=== PATIENT | male | born 1945 | race African-American/Black ===

== ENCOUNTER → 2016-10-08 | Outpatient (CLI) | payer MEDICARE, MEDICAID ==
[~2016-10-08] MED LIST: DOBUTAMINE 250MG PREMIX 250 ML IV ONE; REGADENOSON 0.4 MG/5 ML IV ONE
== END | disposition home or self-care (01) ==
LOC: NM 07:26
PROVIDERS: ATTEND Specialist
DX: I25.10 Atherosclerotic heart disease of native coronary artery without angina pectoris (principal); I10 Essential (primary) hypertension
CPT/HCPCS: 78452; 93017; A9500; J1250; J2785

== ENCOUNTER → 2019-06-27 | Outpatient (CLI) | payer MEDICARE, MEDICAID | END | disposition home or self-care (01) | LOC: RAD 10:51 | PROVIDERS: ATTEND Internal Medicine Nephrology | DX: M47.812 Spondylosis without myelopathy or radiculopathy, cervical region (principal); M48.02 Spinal stenosis, cervical region; M25.78 Osteophyte, vertebrae; M19.071 Primary osteoarthritis, right ankle and foot; M20.5X1 Other deformities of toe(s) (acquired), right foot | CPT/HCPCS: 72141; 73630 ==

== ENCOUNTER 2019-07-04 20:47 | Inpatient (IN) | payer MEDICARE, MEDICAID ==
[~2019-07-04] VITALS: Ht 180.3 cm; Wt 93.9 kg
[2019-07-04 21:27] LABS: BASOPHILS % 0.8 % (0.0-2.0); EOSINOPHILS % 4.3 % (0.0-5.0); HEMATOCRIT. 36.3 % (42.0-52.0); HEMOGLOBIN. 12.3 g/dL (14.0-18.0); LYMPHOCYTES % 34.7 % (20.0-50.0); MEAN CORPUSCULAR HEMOGLOBIN 30.8 pg (28.0-32.0); MEAN CORPUSCULAR VOLUME 90.8 fL (80.0-94.0); MEAN PLATELET VOLUME 7.8 fl (7.4-10.4); MONOCYTES % 10.4 % (2.0-8.0); NEUTROPHILS % 49.8 % (40.0-76.0); PLATELET 131 x1000/uL (130-400); RED BLOOD CELL COUNT 3.99 mill/uL (4.7-6.1); RED CELL DISTRIBUTION WIDTH 15.4 % (11.6-14.6)
[2019-07-04 21:35] LABS: CHLORIDE 96 mEq/L (98-107)
[2019-07-04 21:40] LABS: PHOSPHORUS 4.9 mg/dL (2.5-4.9)
[2019-07-04] MEDS ORDERED: VANCOMYCIN 1 G PREMIX 200 ML IV ONE (22:15)
[2019-07-04] MEDS ORDERED: PIPERACILLIN/TAZ 3.375G PREMIX 50 ML IV ONE (22:15)
[2019-07-05] VITALS: BP 140/73
[2019-07-05] MEDS ORDERED: ONDANSETRON HCL 4MG/2ML INJ IV PRN ×2 (00:15→19:00)
[2019-07-05] MEDS ORDERED: GUAIFENESIN 200MG/10ML SUGAR FREE UDC PO PRN (00:15)
[2019-07-05] MEDS ORDERED: DEXTROSE 50% WATER 50ML SYRINGE IV PRN (00:15)
[2019-07-05] MEDS ORDERED: VANCOMYCIN 1 G PREMIX 200 ML IV SCH (00:15)
[2019-07-05] MEDS ORDERED: ZOLPIDEM TARTRATE 5MG TABLET PO PRN (00:15)
[2019-07-05] MEDS ORDERED: DIPHENHYDRAMINE 50MG/ML VIAL IV PRN (00:15)
[2019-07-05] MEDS ORDERED: MAGNESIUM/ALUMINUM HYDROXIDE/SIMETHICONE 30ML UDC PO PRN (00:15)
[2019-07-05] MEDS ORDERED: ACETAMINOPHEN 325MG TABLET PO PRN (00:15)
[2019-07-05] MEDS ORDERED: CLONIDINE 0.1MG TABLET PO PRN (00:15)
[2019-07-05] MEDS ORDERED: PIPERACILLIN/TAZOBACTAM 2.25 G in DEXTROSE 5% WATER 50 ML IV SCH (02:00)
[2019-07-05 04:00] VITALS: BP 132/74
[2019-07-05] MEDS: PIPERACILLIN/TAZOBACTAM 2.25 G in DEXTROSE 5% WATER 50 ML IV SCH ×3 (05:58→22:06)
[2019-07-05] MEDS: INSULIN LISPRO 100 UNITS/ML SUBCUT SCH ×4 (06:19→21:00)
[2019-07-05] MEDS: BLOOD SUGAR DIAGNOSTIC STRIP TEST SCH ×4 (06:19→21:40)
[2019-07-05] MEDS: SODIUM CHLORIDE 0.9% INJ 3ML FLUSH IVF SCH ×3 (06:20→22:06)
[2019-07-05 08:00] VITALS: BP 133/76
[2019-07-05] MEDS ORDERED: HEPARIN SODIUM 1,000 UNIT/1ML VIAL IV ONE (10:25)
[2019-07-05] MEDS ORDERED: LIDOCAINE HCL 1% 20ML VIAL (Pyxis) INJ ONE (10:25)
[2019-07-05] MEDS ORDERED: BUPIVACAINE HCL/PF 0.5% (5MG/ML) 10ML ONE (10:25)
[2019-07-05] MEDS ORDERED: BACITRACIN 15GM TUBE TOP ONE (10:25)
[2019-07-05] MEDS ORDERED: THROMBIN (BOVINE) 5000 UNITS/VIAL TOP ONE (10:26)
[2019-07-05] MEDS ORDERED: BACITRACIN 50,000 UNITS/VIAL ONE (10:26)
[2019-07-05 12:00] VITALS: BP 158/88
[2019-07-05] MEDS ORDERED: VANCOMYCIN 500 MG PREMIX 100 ML IV NR (15:00)
[2019-07-05] MEDS ORDERED: EPHEDRINE SULFATE 50MG/ML VIAL ONE ×2 (15:36→15:45)
[2019-07-05] MEDS: HYDROMORPHONE HCL/PF 2MG/ML CPJ IV PRN ×3 (17:10→17:29)
[2019-07-05 18:30] VITALS: BP 114/63
[2019-07-05] MEDS ORDERED: LABETALOL 5MG/ML SYR 20 MG/4 ML SYRINGE IV PRN (19:00)
[2019-07-05] MEDS ORDERED: MEPERIDINE HCL/PF 25MG/ML CPJ IV PRN (19:00)
[2019-07-05] MEDS ORDERED: HYDROMORPHONE HCL/PF 2MG/ML CPJ IV PRN (19:00)
[2019-07-05 20:00] VITALS: BP 117/73
[2019-07-05] MEDS: BUDESONIDE 0.5MG/2ML NEB HHN SCH (22:24)
[2019-07-06] VITALS (16 sets, daily range): BP systolic 123–156; BP diastolic 59–90
[2019-07-06] MEDS: HYDROCODONE/APAP 7.5/325MG 1 TAB TABLET PO PRN ×3 (02:41→18:44)
[2019-07-06] MEDS ORDERED: SODIUM POLYSTYRENE SULFONATE 15 G/60 ML BOT PO NR (05:09)
[2019-07-06] MEDS: PIPERACILLIN/TAZOBACTAM 2.25 G in DEXTROSE 5% WATER 50 ML IV SCH ×3 (05:25→21:05)
[2019-07-06] MEDS: SODIUM CHLORIDE 0.9% INJ 3ML FLUSH IVF SCH ×3 (05:26→21:05)
[2019-07-06] MEDS: BLOOD SUGAR DIAGNOSTIC STRIP TEST SCH ×4 (06:58→21:05)
[2019-07-06] MEDS: INSULIN LISPRO 100 UNITS/ML SUBCUT SCH ×4 (07:05→21:00)
[2019-07-06] MEDS: IPRATROPIUM/ALBUTEROL 0.5-3(2.5)MG/3ML NEB HHN PRN ×2 (08:26→21:59)
[2019-07-06] MEDS: BUDESONIDE 0.5MG/2ML NEB HHN SCH ×2 (08:39→21:59)
[2019-07-06 09:21] LABS: INR 1.1; PARTIAL THROMBOPLASTIN TIME 25.8 sec (23.4-31.0)
[2019-07-06] MEDS ORDERED: SODIUM BICARBONATE 4% (2.4MEQ) 5ML VIAL IV ONE (10:37)
[2019-07-06] MEDS ORDERED: LIDOCAINE HCL 1% 20ML VIAL (Pyxis) INJ ONE (10:38)
[2019-07-06] MEDS ORDERED: IOHEXOL-300 100 ML BOTTLE ONE (10:38)
[2019-07-06] MEDS ORDERED: FENTANYL CITRATE/PF 50MCG/ML 2ML VIAL ONE (10:41)
[2019-07-06] MEDS ORDERED: FENTANYL CITRATE/PF 50MCG/ML 2ML VIAL IV ONE (11:30)
[2019-07-06] MEDS ORDERED: VANCOMYCIN 500 MG PREMIX 100 ML IV NR (13:00)
[2019-07-06] MEDS: MORPHINE SULFATE 2 MG/ML CPJ (NOT FOR IM USE) IV PRN (23:16)
[2019-07-07] VITALS (7 sets, daily range): BP systolic 114–149; BP diastolic 67–89
[2019-07-07] MEDS: HYDROCODONE/APAP 7.5/325MG 1 TAB TABLET PO PRN ×2 (01:12→08:49)
[2019-07-07] MEDS: MORPHINE SULFATE 2 MG/ML CPJ (NOT FOR IM USE) IV PRN ×2 (03:47→15:49)
[2019-07-07] MEDS: SODIUM CHLORIDE 0.9% INJ 3ML FLUSH IVF SCH ×2 (06:00→14:00)
[2019-07-07] MEDS: BLOOD SUGAR DIAGNOSTIC STRIP TEST SCH ×4 (06:03→21:21)
[2019-07-07] MEDS: PIPERACILLIN/TAZOBACTAM 2.25 G in DEXTROSE 5% WATER 50 ML IV SCH ×2 (06:03→14:00)
[2019-07-07] MEDS: INSULIN LISPRO 100 UNITS/ML SUBCUT SCH ×4 (06:10→21:00)
[2019-07-07] MEDS: BUDESONIDE 0.5MG/2ML NEB HHN SCH ×2 (07:33→21:23)
[2019-07-07] MEDS ORDERED: LIDOCAINE HCL 1% 20ML VIAL (Pyxis) INJ ONE (08:58)
[2019-07-07] MEDS ORDERED: SODIUM BICARBONATE 4% (2.4MEQ) 5ML VIAL IV ONE (08:58)
[2019-07-07] MEDS ORDERED: IOHEXOL-300 50 ML BOTTLE IV ONE (09:31)
[2019-07-07] MEDS ORDERED: VANCOMYCIN 750 MG PREMIX 150 ML IV NR (17:00)
[2019-07-07] MEDS: IPRATROPIUM/ALBUTEROL 0.5-3(2.5)MG/3ML NEB HHN PRN (21:23)
== END 2019-07-07 22:26 | disposition home or self-care (01) | DRG 252 ==
LOC: ER 20:47 → 7WST 22:14 → EDBEDREQ 22:17 → EDBEDREQTM 22:17 → ENRESERV 22:41
PROVIDERS: ADMIT Internal Medicine; ATTEND Internal Medicine
PROC: 03150JD Bypass Right Axillary Artery to Upper Arm Vein with Synthetic Substitute, Open Approach (ICD-10-PCS; principal; 2019-07-05)
PROC: 05PY0JZ Removal of Synthetic Substitute from Upper Vein, Open Approach (ICD-10-PCS; 2019-07-05)
PROC: 03PY0JZ Removal of Synthetic Substitute from Upper Artery, Open Approach (ICD-10-PCS; 2019-07-05)
PROC: B51W1ZZ Fluoroscopy of Dialysis Shunt/Fistula using Low Osmolar Contrast (ICD-10-PCS; 2019-07-06)
PROC: B5181ZZ Fluoroscopy of Superior Vena Cava using Low Osmolar Contrast (ICD-10-PCS; 2019-07-06)
PROC: B51M1ZZ Fluoroscopy of Right Upper Extremity Veins using Low Osmolar Contrast (ICD-10-PCS; 2019-07-06)
PROC: 5A1D70Z Performance of Urinary Filtration, Intermittent, Less than 6 Hours Per Day (ICD-10-PCS; 2019-07-06)
PROC: 02HV33Z Insertion of Infusion Device into Superior Vena Cava, Percutaneous Approach (ICD-10-PCS; 2019-07-07)
PROC: B548ZZA Ultrasonography of Superior Vena Cava, Guidance (ICD-10-PCS; 2019-07-07)
PROC: B5181ZA Fluoroscopy of Superior Vena Cava using Low Osmolar Contrast, Guidance (ICD-10-PCS; 2019-07-07)
DX: T82.898A Other specified complication of vascular prosthetic devices, implants and grafts, initial encounter (principal); N18.6 End stage renal disease; I13.2 Hypertensive heart and chronic kidney disease with heart failure and with stage 5 chronic kidney disease, or end stage renal disease; I50.9 Heart failure, unspecified; J44.9 Chronic obstructive pulmonary disease, unspecified; R73.9 Hyperglycemia, unspecified; L98.9 Disorder of the skin and subcutaneous tissue, unspecified; E87.5 Hyperkalemia; Y84.1 Kidney dialysis as the cause of abnormal reaction of the patient, or of later complication, without mention of misadventure at the time of the procedure; Z99.2 Dependence on renal dialysis; Z87.891 Personal history of nicotine dependence; Z80.8 Family history of malignant neoplasm of other organs or systems; Z88.8 Allergy status to other drugs, medicaments and biological substances; Z91.018 Allergy to other foods; Y92.89 Other specified places as the place of occurrence of the external cause
CPT/HCPCS: 36415; 36901; 71045; 76937; 77001; 80053; 80202; 82962; 83036; 83605; 83735; 84100; 84132; 84484; 85025; 93005; 93971; 94640; 96365; 99152; 99153; 99285; C1752; C1766; C1768; C1769; C1887; J1170; J1642; J1644; J2250; J2270; J2543; J2704; J3010; J3370; J3490; J7030; J7050; J7060; J7626; Q9967; G0500

== ENCOUNTER 2019-07-26 10:13 | Emergency (ER) | payer MEDICARE, MEDICAID ==
[~2019-07-26] VITALS: Ht 180.3 cm; Wt 90.8 kg
[2019-07-26 11:55] LABS: HEMATOCRIT. 31.4 % (42.0-52.0); HEMOGLOBIN. 10.6 g/dL (14.0-18.0); MEAN CORPUSCULAR HEMOGLOBIN 30.6 pg (28.0-32.0); MEAN CORPUSCULAR VOLUME 90.6 fL (80.0-94.0); MEAN PLATELET VOLUME 7.5 fl (7.4-10.4); PLATELET 152 x1000/uL (130-400); RED BLOOD CELL COUNT 3.47 mill/uL (4.7-6.1); RED CELL DISTRIBUTION WIDTH 15.2 % (11.6-14.6)
[2019-07-26 11:59] LABS: CHLORIDE 98 mEq/L (98-107)
[2019-07-26 12:03] LABS: INR 1.1
[2019-07-26 12:16] LABS: PLATELET ESTIMATE NORMAL
[2019-07-26] MEDS ORDERED: ENOXAPARIN 100MG/ML SYR SUBCUT ONE (16:00)
[2019-07-26 17:44] VITALS: BP 128/65
== END 2019-07-26 17:52 | disposition home or self-care (01) ==
LOC: ER 10:13
DX: T82.41XA Breakdown (mechanical) of vascular dialysis catheter, initial encounter (principal); I12.0 Hypertensive chronic kidney disease with stage 5 chronic kidney disease or end stage renal disease; N18.6 End stage renal disease; I82.721 Chronic embolism and thrombosis of deep veins of right upper extremity; Y82.8 Other medical devices associated with adverse incidents; Y92.018 Other place in single-family (private) house as the place of occurrence of the external cause; Z99.2 Dependence on renal dialysis; Z79.01 Long term (current) use of anticoagulants
CPT/HCPCS: 36415; 80053; 85025; 85610; 87040; 93971; 96372; 99285; J1650

== ENCOUNTER 2019-09-02 15:28 | Inpatient (IN) | payer MEDICARE, MEDICAID ==
[~2019-09-02] VITALS: Ht 180.3 cm; Wt 87.5 kg
[2019-09-02] MEDS ORDERED: VANCOMYCIN 1 G PREMIX 200 ML IV ONE (17:30)
[2019-09-02] MEDS ORDERED: PIPERACILLIN/TAZ 3.375G PREMIX 50 ML IV ONE (17:30)
[2019-09-02 17:36] LABS: HEMATOCRIT. 33.3 % (42.0-52.0); HEMOGLOBIN. 11.4 g/dL (14.0-18.0); MEAN CORPUSCULAR HEMOGLOBIN 31.3 pg (28.0-32.0); MEAN CORPUSCULAR VOLUME 91.7 fL (80.0-94.0); MEAN PLATELET VOLUME 8.1 fl (7.4-10.4); PLATELET 170 x1000/uL (130-400); RED BLOOD CELL COUNT 3.63 mill/uL (4.7-6.1); RED CELL DISTRIBUTION WIDTH 15.3 % (11.6-14.6)
[2019-09-02 17:43] LABS: CHLORIDE 94 mEq/L (98-107); INR 1.1; PROTHROMBIN TIME 11.6 sec (9.6-11.0)
[2019-09-02 18:34] LABS: PLATELET ESTIMATE NORMAL
[2019-09-02] MEDS ORDERED: ZOLPIDEM TARTRATE 5MG TABLET PO PRN (22:15)
[2019-09-02] MEDS ORDERED: PIPERACILLIN/TAZ 3.375G PREMIX 50 ML IV SCH (22:15)
[2019-09-02] MEDS ORDERED: ONDANSETRON HCL 4MG/2ML INJ IV PRN (22:15)
[2019-09-02] MEDS ORDERED: VANCOMYCIN 1 G PREMIX 200 ML IV SCH (22:15)
[2019-09-02] MEDS ORDERED: ACETAMINOPHEN 325MG TABLET PO PRN ×2 (22:15)
[2019-09-02] MEDS ORDERED: CLONIDINE 0.1MG TABLET PO PRN (22:15)
[2019-09-02] MEDS ORDERED: GUAIFENESIN 200MG/10ML SUGAR FREE UDC PO PRN (22:15)
[2019-09-02] MEDS ORDERED: MAGNESIUM/ALUMINUM HYDROXIDE/SIMETHICONE 30ML UDC PO PRN (22:15)
[2019-09-02 22:30] VITALS: BP 130/71
[2019-09-02] MEDS: PIPERACILLIN/TAZOBACTAM 2.25 G in DEXTROSE 5% WATER 50 ML IV SCH (23:59)
[2019-09-03] VITALS: BP 130/71
[2019-09-03] MEDS: DIPHENHYDRAMINE 50MG/ML VIAL IV PRN ×2 (00:23→23:22)
[2019-09-03] MEDS ORDERED: LACTULOSE 20G/30ML UDC PO NR (02:00)
[2019-09-03] MEDS ORDERED: SODIUM POLYSTYRENE SULFONATE 15 G/60 ML BOT PO NR (02:30)
[2019-09-03 04:00] VITALS: BP 115/51
[2019-09-03 08:00] VITALS: BP 164/100
[2019-09-03] MEDS: FERROUS SULFATE 325MG TABLET PO SCH (08:55)
[2019-09-03] MEDS: FISH OIL/OMEGA-3 FATTY ACIDS 1000MG CAPSULE PO SCH (08:55)
[2019-09-03] MEDS: FOLIC ACID 1MG TABLET PO SCH (08:55)
[2019-09-03] MEDS: DOCUSATE SODIUM 100MG CAPSULE PO SCH ×2 (08:56→18:06)
[2019-09-03] MEDS: PIPERACILLIN/TAZOBACTAM 2.25 G in DEXTROSE 5% WATER 50 ML IV SCH ×2 (08:56→21:35)
[2019-09-03] MEDS: AMLODIPINE 5MG TABLET PO SCH (09:00)
[2019-09-03] MEDS: METOPROLOL TARTRATE 25MG TABLET PO SCH ×2 (09:00→21:00)
[2019-09-03] MEDS ORDERED: LIDOCAINE HCL 1% 20ML VIAL (Pyxis) INJ ONE (09:02)
[2019-09-03 12:00] VITALS: BP 145/71
[2019-09-03] MEDS ORDERED: VANCOMYCIN 500 MG PREMIX 100 ML IV SCH (14:00)
[2019-09-03] MEDS: SODIUM CHLORIDE 0.9% INJ 3ML FLUSH IVF SCH (14:05)
[2019-09-03 16:00] VITALS: BP 127/69
[2019-09-03 20:00] VITALS: BP 108/51
[2019-09-03] MEDS: TERAZOSIN HCL 1MG CAPSULE PO SCH (21:00)
[2019-09-03] MEDS: ATORVASTATIN CALCIUM 10MG TABLET PO SCH (21:35)
[2019-09-03] MEDS: GABAPENTIN 100MG CAPSULE PO SCH (21:36)
[2019-09-04] VITALS (12 sets, daily range): BP systolic 98–138; BP diastolic 56–71
[2019-09-04] MEDS: SODIUM CHLORIDE 0.9% INJ 3ML FLUSH IVF SCH ×4 (00:48→21:11)
[2019-09-04] MEDS: EMTRICITABINE 200MG CAPSULE PO SCH (09:00)
[2019-09-04] MEDS: METOPROLOL TARTRATE 25MG TABLET PO SCH ×2 (09:09→21:10)
[2019-09-04] MEDS: FISH OIL/OMEGA-3 FATTY ACIDS 1000MG CAPSULE PO SCH (09:09)
[2019-09-04] MEDS: FERROUS SULFATE 325MG TABLET PO SCH (09:09)
[2019-09-04] MEDS: DOCUSATE SODIUM 100MG CAPSULE PO SCH ×2 (09:10→17:00)
[2019-09-04] MEDS: FOLIC ACID 1MG TABLET PO SCH (09:10)
[2019-09-04] MEDS: AMLODIPINE 5MG TABLET PO SCH (09:10)
[2019-09-04] MEDS: PIPERACILLIN/TAZOBACTAM 2.25 G in DEXTROSE 5% WATER 50 ML IV SCH (09:10)
[2019-09-04] MEDS ORDERED: FENTANYL CITRATE/PF 50MCG/ML 2ML VIAL ONE (12:35)
[2019-09-04] MEDS ORDERED: IOHEXOL-300 100 ML BOTTLE ONE (12:43)
[2019-09-04] MEDS ORDERED: ALTEPLASE 2MG/VIAL ITC NR (13:15)
[2019-09-04] MEDS: GABAPENTIN 100MG CAPSULE PO SCH (21:10)
[2019-09-04] MEDS: ATORVASTATIN CALCIUM 10MG TABLET PO SCH (21:11)
[2019-09-04] MEDS: TERAZOSIN HCL 1MG CAPSULE PO SCH (21:11)
[2019-09-04] MEDS: DIPHENHYDRAMINE 50MG/ML VIAL IV PRN (21:21)
[2019-09-05] VITALS: BP 99/47
[2019-09-05 04:00] VITALS: BP 120/66
[2019-09-05] MEDS: SODIUM CHLORIDE 0.9% INJ 3ML FLUSH IVF SCH ×2 (05:08→14:06)
[2019-09-05 08:00] VITALS: BP 105/55
[2019-09-05] MEDS: AMLODIPINE 5MG TABLET PO SCH (09:00)
[2019-09-05] MEDS: METOPROLOL TARTRATE 25MG TABLET PO SCH ×2 (09:00→21:38)
[2019-09-05] MEDS: FOLIC ACID 1MG TABLET PO SCH (09:06)
[2019-09-05] MEDS: FISH OIL/OMEGA-3 FATTY ACIDS 1000MG CAPSULE PO SCH (09:06)
[2019-09-05] MEDS: FERROUS SULFATE 325MG TABLET PO SCH (09:06)
[2019-09-05] MEDS: DOCUSATE SODIUM 100MG CAPSULE PO SCH ×2 (09:06→16:32)
[2019-09-05 12:00] VITALS: BP 124/69
[2019-09-05 16:00] VITALS: BP 128/78
[2019-09-05 20:00] VITALS: BP 129/66
[2019-09-05] MEDS: GABAPENTIN 100MG CAPSULE PO SCH (21:38)
[2019-09-05] MEDS: TERAZOSIN HCL 1MG CAPSULE PO SCH (21:38)
[2019-09-05] MEDS: ATORVASTATIN CALCIUM 10MG TABLET PO SCH (21:38)
[2019-09-05] MEDS: DIPHENHYDRAMINE 50MG/ML VIAL IV PRN (22:10)
[2019-09-06] VITALS: BP 120/73
[2019-09-06 04:00] VITALS: BP 126/68
[2019-09-06 08:00] VITALS: BP 132/73
[2019-09-06] MEDS: FISH OIL/OMEGA-3 FATTY ACIDS 1000MG CAPSULE PO SCH (08:32)
[2019-09-06] MEDS: FERROUS SULFATE 325MG TABLET PO SCH (08:32)
[2019-09-06] MEDS: AMLODIPINE 5MG TABLET PO SCH (08:32)
[2019-09-06] MEDS: DOCUSATE SODIUM 100MG CAPSULE PO SCH ×2 (08:32→17:54)
[2019-09-06] MEDS: FOLIC ACID 1MG TABLET PO SCH (08:33)
[2019-09-06] MEDS: METOPROLOL TARTRATE 25MG TABLET PO SCH ×2 (08:33→21:27)
[2019-09-06 12:00] VITALS: BP 135/72
[2019-09-06] MEDS ORDERED: VANCOMYCIN 500 MG PREMIX 100 ML IV NR (15:00)
[2019-09-06 16:00] VITALS: BP 115/68
[2019-09-06] MEDS ORDERED: ALTEPLASE 2MG/VIAL ITC NR (17:00)
[2019-09-06 20:00] VITALS: BP 125/71
[2019-09-06] MEDS: GABAPENTIN 100MG CAPSULE PO SCH (21:26)
[2019-09-06] MEDS: TERAZOSIN HCL 1MG CAPSULE PO SCH (21:26)
[2019-09-06] MEDS: ATORVASTATIN CALCIUM 10MG TABLET PO SCH (21:26)
[2019-09-06] MEDS: SODIUM CHLORIDE 0.9% INJ 3ML FLUSH IVF SCH (21:30)
[2019-09-07] VITALS: BP 111/66
[2019-09-07 04:00] VITALS: BP 118/66
[2019-09-07 08:00] VITALS: BP 121/71
[2019-09-07] MEDS: FISH OIL/OMEGA-3 FATTY ACIDS 1000MG CAPSULE PO SCH (09:22)
[2019-09-07] MEDS: FERROUS SULFATE 325MG TABLET PO SCH (09:22)
[2019-09-07] MEDS: METOPROLOL TARTRATE 25MG TABLET PO SCH ×2 (09:22→21:00)
[2019-09-07] MEDS: DOCUSATE SODIUM 100MG CAPSULE PO SCH ×2 (09:22→17:01)
[2019-09-07] MEDS: FOLIC ACID 1MG TABLET PO SCH (09:23)
[2019-09-07] MEDS: AMLODIPINE 5MG TABLET PO SCH (09:23)
[2019-09-07 10:44] LABS: BASOPHILS % 1.1 % (0.0-2.0); EOSINOPHILS % 4.1 % (0.0-5.0); HEMATOCRIT. 29.2 % (42.0-52.0); HEMOGLOBIN. 9.9 g/dL (14.0-18.0); LYMPHOCYTES % 20.8 % (20.0-50.0); MEAN CORPUSCULAR HEMOGLOBIN 30.8 pg (28.0-32.0); MEAN CORPUSCULAR VOLUME 90.3 fL (80.0-94.0); MEAN PLATELET VOLUME 7.8 fl (7.4-10.4); MONOCYTES % 8.4 % (2.0-8.0); NEUTROPHILS % 65.6 % (40.0-76.0); PLATELET 236 x1000/uL (130-400); RED BLOOD CELL COUNT 3.23 mill/uL (4.7-6.1); RED CELL DISTRIBUTION WIDTH 15.1 % (11.6-14.6)
[2019-09-07 12:00] VITALS: BP 133/73
[2019-09-07] MEDS: EMTRICITABINE 200MG CAPSULE PO SCH (12:20)
[2019-09-07] MEDS: SODIUM CHLORIDE 0.9% INJ 3ML FLUSH IVF SCH (13:48)
[2019-09-07 16:00] VITALS: BP 126/65
[2019-09-07 20:00] VITALS: BP 148/67
[2019-09-07] MEDS: TERAZOSIN HCL 1MG CAPSULE PO SCH (21:00)
[2019-09-07] MEDS: GABAPENTIN 100MG CAPSULE PO SCH (21:23)
[2019-09-07] MEDS: ATORVASTATIN CALCIUM 10MG TABLET PO SCH (21:23)
[2019-09-08] VITALS: BP 130/86
[2019-09-08] MEDS: SODIUM CHLORIDE 0.9% INJ 3ML FLUSH IVF SCH ×2 (03:07→22:21)
[2019-09-08 04:00] VITALS: BP 127/63
[2019-09-08 08:00] VITALS: BP 145/75
[2019-09-08] MEDS ORDERED: HEPARIN SODIUM 1,000 UNIT/1ML VIAL IV SCH (08:00)
[2019-09-08] MEDS: AMLODIPINE 5MG TABLET PO SCH (08:38)
[2019-09-08] MEDS: FISH OIL/OMEGA-3 FATTY ACIDS 1000MG CAPSULE PO SCH (08:38)
[2019-09-08] MEDS: FERROUS SULFATE 325MG TABLET PO SCH (08:38)
[2019-09-08] MEDS: DOCUSATE SODIUM 100MG CAPSULE PO SCH ×2 (08:38→17:04)
[2019-09-08] MEDS: FOLIC ACID 1MG TABLET PO SCH (08:38)
[2019-09-08] MEDS: METOPROLOL TARTRATE 25MG TABLET PO SCH ×2 (08:39→21:00)
[2019-09-08 12:00] VITALS: BP 137/72
[2019-09-08 20:00] VITALS: BP 110/64
[2019-09-08] MEDS: TERAZOSIN HCL 1MG CAPSULE PO SCH (21:00)
[2019-09-08] MEDS ORDERED: VANCOMYCIN 750 MG PREMIX 150 ML IV SCH (21:00)
[2019-09-08] MEDS: GABAPENTIN 100MG CAPSULE PO SCH (22:27)
[2019-09-08] MEDS: ATORVASTATIN CALCIUM 10MG TABLET PO SCH (22:27)
[2019-09-08] MEDS: DIPHENHYDRAMINE 50MG/ML VIAL IV PRN (22:36)
[2019-09-09] VITALS: BP 128/67
[2019-09-09 04:00] VITALS: BP 130/88
[2019-09-09] MEDS: SODIUM CHLORIDE 0.9% INJ 3ML FLUSH IVF SCH (05:40)
[2019-09-09 08:00] VITALS: BP 136/70
[2019-09-09] MEDS: FISH OIL/OMEGA-3 FATTY ACIDS 1000MG CAPSULE PO SCH (09:33)
[2019-09-09] MEDS: FERROUS SULFATE 325MG TABLET PO SCH (09:33)
[2019-09-09] MEDS: DOCUSATE SODIUM 100MG CAPSULE PO SCH (09:33)
[2019-09-09] MEDS: FOLIC ACID 1MG TABLET PO SCH (09:33)
[2019-09-09] MEDS: AMLODIPINE 5MG TABLET PO SCH (09:34)
[2019-09-09] MEDS: METOPROLOL TARTRATE 25MG TABLET PO SCH (09:36)
[2019-09-09 12:00] VITALS: BP 123/67
[2019-09-09 13:02] VITALS: BP 123/67
== END 2019-09-09 13:30 | disposition home health service (06) | DRG 314 ==
LOC: ER 15:28 → EDBEDREQ 18:12 → EDBEDREQSVC 18:12 → EDBEDREQTM 18:12 → 6EST 19:44 → EDBEDREQ 19:53 → EDBEDREQTM 19:53 → ENRESERV 21:34
PROVIDERS: ADMIT Internal Medicine; ATTEND Internal Medicine
PROC: 02PYX3Z Removal of Infusion Device from Great Vessel, External Approach (ICD-10-PCS; 2019-09-02)
PROC: 5A1D70Z Performance of Urinary Filtration, Intermittent, Less than 6 Hours Per Day (ICD-10-PCS; principal; 2019-09-03)
PROC: 06HY33Z Insertion of Infusion Device into Lower Vein, Percutaneous Approach (ICD-10-PCS; 2019-09-03)
PROC: B54BZZA Ultrasonography of Right Lower Extremity Veins, Guidance (ICD-10-PCS; 2019-09-03)
PROC: B51W1ZZ Fluoroscopy of Dialysis Shunt/Fistula using Low Osmolar Contrast (ICD-10-PCS; 2019-09-04)
PROC: B51M1ZA Fluoroscopy of Right Upper Extremity Veins using Low Osmolar Contrast, Guidance (ICD-10-PCS; 2019-09-04)
PROC: 5A1D70Z Performance of Urinary Filtration, Intermittent, Less than 6 Hours Per Day (ICD-10-PCS; 2019-09-06)
PROC: 5A1D70Z Performance of Urinary Filtration, Intermittent, Less than 6 Hours Per Day (ICD-10-PCS; 2019-09-08)
DX: T80.211A Bloodstream infection due to central venous catheter, initial encounter (principal); N18.6 End stage renal disease; A41.02 Sepsis due to Methicillin resistant Staphylococcus aureus; E87.1 Hypo-osmolality and hyponatremia; I12.0 Hypertensive chronic kidney disease with stage 5 chronic kidney disease or end stage renal disease; E87.5 Hyperkalemia; E88.09 Other disorders of plasma-protein metabolism, not elsewhere classified; J44.9 Chronic obstructive pulmonary disease, unspecified; Y83.8 Other surgical procedures as the cause of abnormal reaction of the patient, or of later complication, without mention of misadventure at the time of the procedure; Z60.2 Problems related to living alone; Z80.8 Family history of malignant neoplasm of other organs or systems; Z87.891 Personal history of nicotine dependence; Z99.2 Dependence on renal dialysis; Y92.89 Other specified places as the place of occurrence of the external cause; Z79.899 Other long term (current) drug therapy; Z88.8 Allergy status to other drugs, medicaments and biological substances
CPT/HCPCS: 36415; 36901; 71045; 76937; 80053; 80202; 83605; 84145; 85025; 85651; 87070; 87077; 93005; 93306; 99285; C1752; C1769; C1887; J1200; J1644; J2543; J2997; J3010; J3370; J3490; J7060; Q9967